=== PATIENT | male | born 1965 | race Caucasian/White ===

== ENCOUNTER → 2018-05-13 10:45 | Outpatient (CLI) | payer OTHER, SELFPAY ==
[2018-05-13 11:35] LABS: Add Manual Diff / Slide Review NO; Basophils Absolute Auto 0 /uL (0-100); Basophils Percent Auto 0.3 % (0-2); Eosinophils Absolute Auto 200 /uL (0-450); Eosinophils Percent Auto 2.9 % (2-4); Hematocrit 41.6 % (41-53); Hemoglobin 14.4 g/dL (13.5-17.5); Lymphocytes Absolute Auto 1900 /uL (1100-4500); Lymphocytes Percent Auto 35.1 % (25-40); Mean Corpuscular HGB Conc 34.6 % (30-36); Mean Corpuscular Hemoglobin 33.5 PG (26-34); Mean Corpuscular Volume 96.7 fL (80-100); Monocytes Absolute Auto 500 /uL (0-900); Monocytes Percent Auto 9.6 % (3-14); Neutrophils Absolute Auto 2800 /uL (1500-7000); Neutrophils Percent Auto 52.1 % (50-75); Platelet Count 310 X10^3/uL (150-400); Red Cell Distribution Width 13.5 % (11.6-14.8); White Blood Cell Count 5.4 X10^3/uL (4.5-11.0)
[2018-05-13 11:51] LABS: Alanine Aminotransferase 33 IU/L (21-72); Albumin 4.3 g/dL (3.5-5.0); Albumin Globulin Ratio 1.7 (1.0-2.8); Alkaline Phosphatase 63 U/L (38-126); Aspartate Aminotransferase 26 IU/L (17-59); BUN Creatinine Ratio 13.3 (6-22); Bilirubin Total 0.3 mg/dL (0.2-1.3); Blood Urea Nitrogen 12 mg/dL (9-20); Carbon Dioxide 25 mmol/L (22-32); Chloride 103 mmol/L (98-107); Cholesterol 217 mg/dL (140-199); Estimated Glomerular Filt Rate > 60.0 mL/min (>60); Globulin 2.6 g/dL (1.7-4.1); Glucose 85 mg/dL (70-100); HDL Cholesterol 53 mg/dL (40-60); HEMOLYSIS < 15 (0-50); LDL Cholesterol Calculated 145 mg/dL (<100); Potassium 4.7 mmol/L (3.4-5.1); Sodium 136 mmol/L (137-145); Total Protein 6.9 g/dL (6.3-8.2); Triglycerides 93 mg/dL (35-150)
[2018-05-14 13:22] LABS: Carbamazepine Tegretol Level 11.9 mg/L (4.0-12.0)
== END ==
PROVIDERS: PCP Family Medicine; Visit Provider Family Medicine
DX: Z13.220 Encounter for screening for lipoid disorders (principal); G40.909 Epilepsy, unspecified, not intractable, without status epilepticus
CPT/HCPCS: 36415; 80053; 80061; 80156; 85025

== ENCOUNTER → 2018-11-12 13:05 | Outpatient (CLI) | payer OTHER, SELFPAY ==
[2018-11-12 14:09] LABS: Add Manual Diff / Slide Review NO; Basophils Absolute Auto 0 /uL (0-100); Basophils Percent Auto 0.3 % (0-2); Eosinophils Absolute Auto 100 /uL (0-450); Eosinophils Percent Auto 2.9 % (2-4); Hematocrit 42.9 % (41-53); Hemoglobin 14.6 g/dL (13.5-17.5); Lymphocytes Absolute Auto 1800 /uL (1100-4500); Mean Corpuscular Hemoglobin 33.1 PG (26-34); Mean Corpuscular Volume 97.4 fL (80-100); Monocytes Absolute Auto 500 /uL (0-900); Monocytes Percent Auto 10.7 % (3-14); Neutrophils Absolute Auto 2400 /uL (1500-7000); Neutrophils Percent Auto 49.1 % (50-75); Platelet Count 318 X10^3/uL (150-400); Red Cell Distribution Width 13.6 % (11.6-14.8); White Blood Cell Count 4.9 X10^3/uL (4.5-11.0)
[2018-11-12 14:19] LABS: Alanine Aminotransferase 22 IU/L (21-72); Albumin 4.7 g/dL (3.5-5.0); Albumin Globulin Ratio 1.6 (1.0-2.8); Alkaline Phosphatase 66 U/L (38-126); Aspartate Aminotransferase 24 IU/L (17-59); BUN Creatinine Ratio 12.5 (6-22); Bilirubin Total 0.4 mg/dL (0.2-1.3); Blood Urea Nitrogen 10 mg/dL (9-20); Calcium 9.8 mg/dL (8.4-10.2); Carbon Dioxide 29 mmol/L (22-32); Chloride 98 mmol/L (98-107); Estimated Glomerular Filt Rate > 60.0 mL/min (>60); Globulin 2.9 g/dL (1.7-4.1); Glucose 87 mg/dL (70-100); HEMOLYSIS < 15 (0-50); Potassium 5.2 mmol/L (3.4-5.1); Sodium 136 mmol/L (137-145); Total Protein 7.6 g/dL (6.3-8.2)
[2018-11-12 14:46] LABS: Prostate Specific Antigen Scrn 0.693 ng/mL (0.1-4.0)
== END ==
PROVIDERS: PCP Family Medicine; Visit Provider Family Medicine
DX: Z12.5 Encounter for screening for malignant neoplasm of prostate (principal); G40.909 Epilepsy, unspecified, not intractable, without status epilepticus
CPT/HCPCS: 36415; 80053; 85025; G0103

== ENCOUNTER → 2018-11-26 12:04 | Outpatient (CLI) | payer OTHER, SELFPAY | PROVIDERS: PCP Family Medicine; Visit Provider Family Medicine | DX: M81.0 Age-related osteoporosis without current pathological fracture (principal); G40.909 Epilepsy, unspecified, not intractable, without status epilepticus; M89.9 Disorder of bone, unspecified | CPT/HCPCS: 77080 ==

== ENCOUNTER 2020-03-05 11:58 | Emergency (ER) | payer OTHER, SELFPAY ==
[2020-03-05 12:10] VITALS: BP 134/85; PULSE 60; RESP 18; TEMP 36.8; O2SAT 99
--- NOTE | 2020-03-05 12:22 | DI.RAD.S_ITS ---
PROCEDURE: XR CHEST 2V INDICATIONS: cough TECHNIQUE: 2 views of the chest were acquired. COMPARISON: [facility], CR, XR CHEST 2V, 08/21/2017, 12:00. FINDINGS: Surgical changes and devices: None. Lungs and pleura: Lungs are clear. No pleural effusions or pneumothorax. Mediastinum: Mediastinal contours are normal. Heart size is normal. Bones and chest wall: No suspicious bony abnormalities. Soft tissues appear unremarkable. IMPRESSION: No acute process. Dictated by: Ankur Gold M.D. on 03/05/2020 at 11:39 Approved by: Ankur Gold M.D. on 03/05/2020 at 11:40
--- NOTE | 2020-03-05 13:31 | ED_ITS ---
HPI - URI/Sore Throat General Chief Complaint: Upper Respiratory Symptoms Stated Complaint: Hx Bronchitis, Can't Take Breath W/O Pain Time Seen by Provider: 03/05/20 13:23 Source: patient Mode of arrival: Ambulatory Limitations: no limitations History of Present Illness HPI Narrative: Patient is a 54-year-old male with history of coronary artery disease, COPD, peripheral vascular disease presenting today with by back pain ongoing for last 2-3 days. He says it hurts every time he moves or breathes. 3 days ago he said he was moving cinder blocks up to the roof and throwing them up there the following day he noticed that he was having pain. He denies any fever chills or shortness of breath. He has no change in cough or sputum production. He has not yet taken anything for pain. He usually just takes Tylenol which works. He denies any radiation of the pain. Related Data Home Medications Medication Instructions Recorded Confirmed atorvastatin 80 mg tablet 80 mg PO DAILY 01/13/19 01/13/19 carvedilol 3.125 mg tablet 3.125 mg PO BID 01/13/19 01/13/19 clopidogrel 75 mg tablet 75 mg PO DAILY 01/13/19 01/13/19 lisinopril 5 mg tablet 5 mg PO DAILY 01/13/19 01/13/19 Previous Rx's Medication Instructions Recorded albuterol sulfate [Ventolin HFA] 2 puff INH Q4HP PRN #1 ea 08/06/16 cholecalciferol (vitamin D3) 50 2,000 unit PO DAILY #90 cap 12/02/18 mcg (2,000 unit) capsule lorazepam 0.5 mg tablet 0.5 mg PO TID PRN #20 tab 01/13/19 carbamazepine 200 mg See Rx Instructions PO SEE 04/12/19 capsule,extended release [id number] INSTRUCTIONS #900 cap alendronate 70 mg tablet 70 mg PO QWEEK #12 tab 12/28/19 Allergies Allergy/AdvReac Type Severity Reaction Status Date / Time acetaminophen AdvReac Mild PELVIC PAIN Verified 01/13/19 10:09 codeine AdvReac Mild PELVIC PAIN Verified 01/13/19 10:09 Review of Systems Review of Systems Narrative: GENERAL: Denies chills, fatigue, malaise, fever, sweats, travel HEENT: Denies sinus pain, ear pain, sore throat, difficulty swallowing, neck pain RESPIRATORY: See HPI Denies dyspnea, cough, wheezing, hemoptysis, sputum. CARDIOVASCULAR: Denies chest pain, palpitations, orthopnea, edema GASTROINTESTINAL: Denies nausea, vomiting, abdominal pain, diarrhea, constipation, melena. : Denies dysuria, frequency, incontinence, hematuria, urinary retention, flank pain. MUSCULOSKELETAL: Back pain see HPI Denies weakness, joint pain, or bony pain SKIN: No rash, no erythema, no pruritus NEUROLOGIC: Denies weakness, dizziness, headache, numbness, change in speech, confusion PSYCHIATRIC: No concerning psychosocial issues. 12 point review of systems is negative except for those stated above and HPI Patient History Medical History Acne (Resolved ~03/2015) Anxiety (Chronic) Asthma (Chronic) Chronic low back pain (Chronic) COPD (chronic obstructive pulmonary disease) (Chronic ~2014) Coronary artery disease (Acute) Depression (Chronic) DJD (degenerative joint disease), lumbar (Chronic) History of PTCA 2 (Acute) Hx of joint injury (Resolved 03/2012) Migraines (Chronic ~2009) PAD (peripheral artery disease) (Acute) Pneumonia (Resolved) Seizure (Chronic ~1987) Seizure disorder (Chronic) Surgical History History of back surgery (Resolved) S/P lumbar laminectomy (Resolved) Family History Father No problems noted. Mother No problems noted. Social History Smoking Status: Current every day smoker Smoking Status: Current every day smoker Substance Use Type: marijuana Exam Initial Vital Signs Initial Vital Signs: Vital Signs Temperature 98.2 F 03/05/20 12:10 Pulse Rate 60 03/05/20 12:10 Respiratory Rate 18 03/05/20 12:10 Blood Pressure 134/85 03/05/20 12:10 Pulse Oximetry 99 03/05/20 12:10 GENERAL: Well-appearing, well-nourished and in no acute distress. Watching see [employer] football game HEENT: Head atraumatic,EOMI, pupils reactive, face symmetric, moist mucous membranes CARDIOVASCULAR: Regular rate and rhythm without murmurs, rubs or gallops. RESPIRATORY: Breath sounds equal bilaterally, no wheezes rales or rhonchi. Headaches without any difficulty and is quite a Chatter BACK: No vertebral tenderness no step-offs pain is not quite reproducible no sign of trauma EXTREMITIES: Normal range of motion, no clubbing or edema. Neurovascularly intact NEUROLOGICAL: Alert and oriented x4.Normal gait and speech. Cranial nerves II through XII grossly intact. SKIN: Warm, dry, no laceration, no petechiae, no rashes or lesions. Course Orders Ordered: ED Orders 03/05/20 12:22 XR chest 2V Stat Vital Signs Vital signs: Vital Signs - 8 hr 03/05/20 12:10 03/05/20 13:56 Temperature 98.2 F Pulse Rate 60 57 L Respiratory Rate 18 18 Blood Pressure 134/85 127/74 Pulse Oximetry 99 100 MDM - URI/Sore Throat Imaging Data Chest x-ray: Radiologist's Impression: PROCEDURE: XR CHEST 2V INDICATIONS: cough TECHNIQUE: 2 views of the chest were acquired. COMPARISON: [facility], , XR CHEST 2V, 08/21/2017, 12:00. FINDINGS: Surgical changes and devices: None. Lungs and pleura: Lungs are clear. No pleural effusions or pneumothorax. Mediastinum: Mediastinal contours are normal. Heart size is normal. Bones and chest wall: No suspicious bony abnormalities. Soft tissues appear unremarkable. IMPRESSION: No acute process. Dictated by: Ankur Gold M.D. on 03/05/2020 at 11:39 MDM Narrative Medical decision making narrative: Patient's pain is worse with movement cough and breathing. It is nonradiating he has no chest pain. It happened after strenuous manual labor. This is clinically correlating with musculoskeletal problem. He appears well he is able to stand and move easily about the room. He does not appear in any sort of distress and does not need anything for pain. Discharge Plan Departure Patient Disposition: Home Clinical Impression: Musculoskeletal chest pain Discharge Date/Time: 03/05/20 14:10 Instructions: DI for Atypical Chest Pain, DI for Muscle Spasm Activity Restrictions/Additional Instructions: Thank you for trusting us with your care today. As discussed, your exam is consistent with musculoskeletal pain related to throwing bricks. Please use [id number] medications as needed and able please rest your back over the next few days. Please follow-up with primary care provider in the next 48-72 hours. Please come back to emergency department for any acute concerns such as concerns of heart attack stroke etcetera Prescriptions: No Action atorvastatin 80 mg tablet 80 mg PO DAILY RF: 0 lisinopril 5 mg tablet 5 mg PO DAILY RF: 0 carvedilol 3.125 mg tablet 3.125 mg PO BID RF: 0 clopidogrel 75 mg tablet 75 mg PO DAILY RF: 0 lorazepam 0.5 mg tablet 0.5 mg PO TID PRN (Reason: anxiety) Qty: 20 RF: 0 albuterol sulfate [Ventolin HFA] 90 MCG/PUFF HFA aerosol inhaler 2 puff INH Q4HP PRNQty: 1 RF: 11 cholecalciferol (vitamin D3) 2,000 unit capsule 2,000 unit PO DAILY Qty: 90 RF: 3 carbamazepine [Carbatrol] 200 mg capsule, ER multiphase 12 hr See Rx Instructions PO SEE INSTRUCTIONS Qty: 900 RF: 3 alendronate 70 mg tablet 70 mg PO QWEEK Qty: 12 RF: 0
[2020-03-05 13:56] VITALS: BP 127/74; PULSE 57; RESP 18; O2SAT 100
== END 2020-03-05 14:10 | disposition home or self-care (01) ==
PROVIDERS: Emergency Provider Emergency Medicine
DX: R07.89 Other chest pain (principal); R05 Cough; R06.02 Shortness of breath
CPT/HCPCS: 71046; 99283

== ENCOUNTER 2020-08-05 09:58 | Emergency (ER) | payer OTHER, SELFPAY ==
[2020-08-05 10:07] VITALS: BP 143/84; PULSE 61; RESP 16; TEMP 36.9; O2SAT 98
--- NOTE | 2020-08-05 10:31 | DI.RAD.S_ITS ---
PROCEDURE: XR RIBS RT MIN 3V W CXR 1V INDICATIONS: fall with R rib pain TECHNIQUE: 3 views of the right ribs were acquired, along with a single view chest. COMPARISON: [facility], CR, XR CHEST 2V, 08/21/2017, 12:00. [facility], CR, XR CHEST 1 VIEW, 01/09/2019, 20:06. [facility], XA, SI LEFT HEART CATH, 01/09/2019, 21:30. [facility], CR, XR CHEST 2V, 03/05/2020, 12:24. FINDINGS: Surgical changes and devices: None. Bones and chest wall: Mildly displaced fractures of the lateral aspects of the right 8th and 10th ribs along with questionable fracture of the lateral aspect of the 6th rib.. No suspicious bony lesions. Overlying soft tissues appear unremarkable. Lungs and pleura: No pleural effusions or pneumothorax. Lungs appear clear. Likely granuloma within the right upper to mid lung is relatively unchanged since at least 2018. Mediastinum: Mediastinal contours appear normal. Heart size is normal. IMPRESSION: Mildly displaced lateral 8th and 10th right rib fractures with additional questionable fracture of the 6th rib. No pneumothorax. Dictated by: Luis Alberto Pimentel D.O. on 08/05/2020 at 9:52 Approved by: Luis Alberto Pimentel D.O. on 08/05/2020 at 10:00
--- NOTE | 2020-08-05 11:51 | ED.FALL ---
HPI - Fall General Chief Complaint: Fall Stated Complaint: broke ribs Time Seen by Provider: 08/05/20 11:42 Source: patient and family Mode of arrival: Ambulatory Limitations: no limitations History of Present Illness HPI Narrative: This is a 55-year-old male comes to the emergency department with complaint of right sided chest pain. He states a week ago he tripped over multiple branches while helping and his mother's yd and fell on his right side. He believes that he did have some rib fractures. Patient has continued to have pain for the past week. He developed some nausea and vomiting about 2 days ago after eating some a eggs and watermelon. Patient states the nausea and vomiting stopped after 1 day and he has not had any additional but he has had some continued nausea. Has decreased his oral intake because he has been anxious about his nausea. He has also continued to have right-sided chest pain with movement and palpation. Patient denies any syncope, no neck, back or abdominal pain. He states he has been constipated but did have a bowel movement after [place]. Patient has not had any black or bloody stools. He did not have any black or blood in his emesis. He has not had any urinary changes. He does have a history of cardiac stents as well as stents in his lower extremities he does take aspirin as well as Plavix. He has a history of seizures and is on carbamazepine as well as his other home medications. He states he has been able to take his medications regularly and he has been taking Tylenol every 6 hours for pain which improves the pain for about 3 hours and then wears off. Related Data Home Medications Medication Instructions Recorded Confirmed atorvastatin 80 mg tablet 80 mg PO DAILY 01/13/19 01/13/19 carvedilol 3.125 mg tablet 3.125 mg PO BID 01/13/19 01/13/19 clopidogrel 75 mg tablet 75 mg PO DAILY 01/13/19 01/13/19 lisinopril 5 mg tablet 5 mg PO DAILY 01/13/19 01/13/19 Previous Rx's Medication Instructions Recorded albuterol sulfate [Ventolin HFA] 2 puff INH Q4HP PRN #1 ea 08/06/16 cholecalciferol (vitamin D3) 50 2,000 unit PO DAILY #90 cap 12/02/18 mcg (2,000 unit) capsule lorazepam 0.5 mg tablet 0.5 mg PO TID PRN #20 tab 01/13/19 carbamazepine 200 mg See Rx Instructions PO SEE 04/12/19 capsule,extended release [id number] INSTRUCTIONS #900 cap alendronate 70 mg tablet 70 mg PO QWEEK #12 tab 12/28/19 hydrocodone-acetaminophen 1 tab PO Q6H PRN #14 tab 08/05/20 ondansetron 4 mg PO Q6H PRN #20 tab 08/05/20 Allergies Allergy/AdvReac Type Severity Reaction Status Date / Time acetaminophen AdvReac Mild PELVIC PAIN Verified 01/13/19 10:09 codeine AdvReac Mild PELVIC PAIN Verified 01/13/19 10:09 Review of Systems Review of Systems ROS Unobtainable: All systems reviewed & are unremarkable except as noted in HPI and below Patient History Medical History Acne (~03/2015) Anxiety Asthma Chronic low back pain COPD (chronic obstructive pulmonary disease) (~2014) Coronary artery disease Depression DJD (degenerative joint disease), lumbar History of PTCA 2 Hx of joint injury (03/2012) Migraines (~2009) PAD (peripheral artery disease) Pneumonia Seizure (~1987) Seizure disorder Surgical History History of back surgery S/P lumbar laminectomy Family History Father No problems noted. Mother No problems noted. Social History Smoking Status: Current every day smoker Smoking Status: Current every day smoker Substance Use Type: marijuana Exam Narrative Exam Narrative: GEN: Thin male in Patient appears in mild to moderate distress. Patient stands during the evaluation and sits back on the bed without issue. HEAD: No evidence of trauma, no raccoon/Dodson sign. NECK: Nontender, painless range of motion, trachea midline Negative Nexus criteria, there is no line tenderness, distracting injury, altered mental status, neuro deficit, recent EtOH. EYES: PERRLA, EOMI ENT: External inspection normal, trachea is midline, no dental or oral injury, airway is normal and with normal occlusion, No bony tenderness RESP: Chest is has right-sided tenderness over the lateral ribs at the 7-10 region, has symmetric movement, no ecchymosis, breath sounds are normal no crackles, wheezes or rales, no flail chest. CVS: Heart sounds are normal, no murmur noted, No JVD. ABG/GI: Nontender, soft, normal bowel sounds, no distention, no organomegaly, pelvic rock is negative NEURO: Oriented AOx3, neuro is grossly intact, sensation and motor is normal all 4 extremities moving, cranial nerves II through XII are intact, GCS is 15 PSYCH: Normal mood and affect SKIN: Intact, warm and dry, no crepitus and without decubitus, no ecchymosis on the anterior chest or abdomen or flank noted. BACK: No CVA tenderness, no vertebral tenderness, no step-off's, no crepitus EXT: Atraumatic, hips are nontender, no pedal edema, normal color and temperature, normal range of motion of extremities with normal tendon exam, 2+ pulses in all four extremities Initial Vital Signs Initial Vital Signs: Vital Signs Temperature 98.4 F 08/05/20 10:07 Pulse Rate 61 08/05/20 10:07 Respiratory Rate 16 08/05/20 10:07 Blood Pressure 143/84 H 08/05/20 10:07 Pulse Oximetry 98 08/05/20 10:07 Course Orders Ordered: ED Orders 08/05/20 10:31 XR ribs RT min 3V w CXR1V Stat Vital Signs Vital signs: Vital Signs - 8 hr 08/05/20 12:20 Pulse Rate 65 Respiratory Rate 20 Blood Pressure 128/82 Pulse Oximetry 99 MDM - Fall Imaging Data Chest x-ray: Radiologist's Impression: [address] [id number] ReportSigned Patient: Jeff Bass [facility]#: [id number]: 1965Acct:[id number]/Sex: 55 / MDate of Service: 08/05/20Loc: EDAccession Number: [id number] Procedure: XR ribs RT min 3V w CXR1V Ordering Provider: Clau Morataya D.O. PROCEDURE: XR RIBS RT MIN 3V W CXR 1V INDICATIONS: fall with R rib pain TECHNIQUE: 3 views of the right ribs were acquired, along with a single view chest. COMPARISON: [facility], CR, XR CHEST 2V, 08/21/2017, 12:00. [facility], CR, XR CHEST 1 VIEW, 01/09/2019, 20:06. [facility], XA, SI LEFT HEART CATH, 01/09/2019, 21:30. [facility], CR, XR CHEST 2V, 03/05/2020, 12:24. FINDINGS: Surgical changes and devices: None. Bones and chest wall: Mildly displaced fractures of the lateral aspects of the right 8th and 10th ribs along with questionable fracture of the lateral aspect of the 6th rib.. No suspicious bony lesions. Overlying soft tissues appear unremarkable. Lungs and pleura: No pleural effusions or pneumothorax. Lungs appear clear. Likely granuloma within the right upper to mid lung is relatively unchanged since at least 2017. Mediastinum: Mediastinal contours appear normal. Heart size is normal. IMPRESSION: Mildly displaced lateral 8th and 10th right rib fractures with additional questionable fracture of the 6th rib. No pneumothorax. Dictated by: Luis Alberto Pimentel D.O. on 08/05/2020 at 9:52 Approved by: Luis Alberto Pimentel D.O. on 08/05/2020 at 10:00 MDM Narrative Medical decision making narrative: This is a 55-year-old male on aspirin and Plavix with a mechanical fall 1 week ago with right-sided chest pain. Patient has x-ray positive for rib fractures with a history appropriate and physical exam. Patient has had some recent nausea. He had vomiting 2 days ago but has not had any additionally. Vital signs are stable here. He is anticoagulant and we discussed doing an abdominal ultrasound to evaluate for any intra-abdominal fluid or other injury. Patient defers at this time. My suspicion for a emergent intra-abdominal process 1 week from his initial injury is low with stable vitals, no ecchymosis or other skin changes. Patient was given incentive spirometer. Patient was given a prescription for Zofran along with his narcotic pain medication as he has had nausea in the past with narcotics. He does have a history of seizure disorder so [place] was selected as this would not increase his seizure risk. All questions were answered. Discharge Plan Departure Patient Disposition: Home Clinical Impression: Closed rib fracture Qualifiers: Encounter type: initial encounter Rib fracture type: multiple ribs Laterality: right Qualified Code(s): S22.41XA - Multiple fractures of ribs, right side, initial encounter for closed fracture Instructions: DI for Rib Fracture Activity Restrictions/Additional Instructions: Follow up in the next 5-7 days for recheck if you are not having improvement. Take Zofran 1 tablet every 6 hours as needed for nausea. Take this medication 20 minutes prior to narcotics to prevent nausea or vomiting. You may take [place] 1-2 tablets every 6 hours as needed for pain. This medication can make you sleepy do not drive, perform hazardous activities or make any major decisions while taking it. [place] has Tylenol included. Do not take more than 3000 mg of Tylenol in 24 hours. Prescription sent to [facility]. This medication will make you constipated take a stool softener once to twice daily until stools are soft and regular. Make sure you are drinking plenty of fluids to stay hydrated and prevent constipation. Return for fevers, new chest pain, shortness of breath, lightheadedness or passing out, persistent vomiting, black or bloody stools, new abdominal, back or neck pain. No numbness tingling or weakness or other new or concerning symptoms. Prescriptions: New ondansetron 4 mg tablet,disintegrating 4 mg PO Q6H PRN (Reason: nausea and vomiting) Qty: 20 RF: 0 hydrocodone-acetaminophen 5-325 mg tablet 1 tab PO Q6H PRN (Reason: pain) Qty: 14 RF: 0 No Action atorvastatin 80 mg tablet 80 mg PO DAILY RF: 0 lisinopril 5 mg tablet 5 mg PO DAILY RF: 0 carvedilol 3.125 mg tablet 3.125 mg PO BID RF: 0 clopidogrel 75 mg tablet 75 mg PO DAILY RF: 0 lorazepam 0.5 mg tablet 0.5 mg PO TID PRN (Reason: anxiety) Qty: 20 RF: 0 albuterol sulfate [Ventolin HFA] 90 MCG/PUFF HFA aerosol inhaler 2 puff INH Q4HP PRNQty: 1 RF: 11 cholecalciferol (vitamin D3) 2,000 unit capsule 2,000 unit PO DAILY Qty: 90 RF: 3 carbamazepine [Carbatrol] 200 mg capsule, ER multiphase 12 hr See Rx Instructions PO SEE INSTRUCTIONS Qty: 900 RF: 3 alendronate 70 mg tablet 70 mg PO QWEEK Qty: 12 RF: 0
[2020-08-05 12:20] VITALS: BP 128/82; PULSE 65; RESP 20; O2SAT 99
== END 2020-08-05 12:35 | disposition home or self-care (01) ==
PROVIDERS: Emergency Provider Emergency Medicine
DX: S22.41XA Multiple fractures of ribs, right side, initial encounter for closed fracture (principal); W19.XXXA Unspecified fall, initial encounter
CPT/HCPCS: 71101; 99283

== ENCOUNTER 2020-09-10 14:26 | Emergency (ER) | payer OTHER, SELFPAY ==
[2020-09-10 15:18] VITALS: BP 126/71; PULSE 66; RESP 16; TEMP 37; O2SAT 98; BMI 20.3
--- NOTE | 2020-09-10 16:16 | ED.GENADULT ---
HPI - General Adult General Chief complaint: Trauma Stated complaint: fell burnt hand/ hit head Time Seen by Provider: 09/10/20 15:43 Source: patient Mode of arrival: Ambulatory Limitations: no limitations History of Present Illness HPI narrative: 55-year-old male who is here for evaluation of injuries that he sustained last evening. He states that he was camping last evening. Was drinking. He tripped and fell and hit his face on a table. He then burned his left hand. He came in this afternoon after he [facility]. He is on aspirin and Plavix. There was no loss of consciousness. He has no neck pain. Does not know when his last tetanus shot was. Related Data Home Medications Medication Instructions Recorded Confirmed atorvastatin 80 mg tablet 80 mg PO DAILY 01/13/19 01/13/19 carvedilol 3.125 mg tablet 3.125 mg PO BID 01/13/19 01/13/19 clopidogrel 75 mg tablet 75 mg PO DAILY 01/13/19 01/13/19 lisinopril 5 mg tablet 5 mg PO DAILY 01/13/19 01/13/19 Previous Rx's Medication Instructions Recorded albuterol sulfate [Ventolin HFA] 2 puff INH Q4HP PRN #1 ea 08/06/16 cholecalciferol (vitamin D3) 50 2,000 unit PO DAILY #90 cap 12/02/18 mcg (2,000 unit) capsule lorazepam 0.5 mg tablet 0.5 mg PO TID PRN #20 tab 01/13/19 carbamazepine 200 mg See Rx Instructions PO SEE 04/12/19 capsule,extended release [id number] INSTRUCTIONS #900 cap alendronate 70 mg tablet 70 mg PO QWEEK #12 tab 12/28/19 hydrocodone-acetaminophen 1 tab PO Q6H PRN #14 tab 08/05/20 ondansetron 4 mg PO Q6H PRN #20 tab 08/05/20 Allergies Allergy/AdvReac Type Severity Reaction Status Date / Time acetaminophen AdvReac Mild PELVIC PAIN Verified 01/13/19 10:09 codeine AdvReac Mild PELVIC PAIN Verified 01/13/19 10:09 Review of Systems Constitutional Constitutional: Denies fever(s) and Reports headache(s) Eyes Comments: Bruising around left eye ENT Ears, Nose, Mouth, and Throat: Reports headache(s) Comments: No dental pain Cardiovascular Cardiovascular: Denies chest pain and Denies dyspnea Respiratory Respiratory: Denies dyspnea Gastrointestinal Gastrointestinal: Denies abdominal pain Musculoskeletal Comments: Generalized muscle soreness Integumentary/Breasts Comments: Bruising around left eye and left ear and sánchez to the right hand Neurologic Neurologic: Reports system reviewed and no additional complaints, except as documented and Reports headache(s) Psychiatric Psychiatric: Reports system reviewed and no additional complaints, except as documented Endocrine Endocrine: Reports system reviewed and no additional complaints, except as documented Hematologic/Lymphatic Comments: Aspirin and Plavix Allergic/Immunologic Allergic/Immunologic: Reports system reviewed and no additional complaints, except as documented Patient History Medical History (Updated 09/10/20 @ 17:41 by Maurilio Maria DO) Acne (~03/2015) Anxiety Asthma Chronic low back pain COPD (chronic obstructive pulmonary disease) (~2014) Coronary artery disease Depression DJD (degenerative joint disease), lumbar History of PTCA 2 Hx of joint injury (03/2012) Migraines (~2009) PAD (peripheral artery disease) Pneumonia Seizure (~1987) Seizure disorder Surgical History History of back surgery S/P lumbar laminectomy Family History Father No problems noted. Mother No problems noted. Social History Smoking Status: Current every day smoker Smoking Status: Current every day smoker alcohol intake frequency: 0-2 drinks per day Substance Use Type: marijuana Exam Initial Vital Signs Initial Vital Signs: Vital Signs Temperature 98.6 F 09/10/20 15:18 Pulse Rate 66 09/10/20 15:18 Respiratory Rate 16 09/10/20 15:18 Blood Pressure 126/71 09/10/20 15:18 Pulse Oximetry 98 09/10/20 15:18 Const General: cooperative, comfortable, well developed and well groomed Limitations: mental status not altered HENMT Head: normal to inspection and normocephalic Ears: TM's normal bilaterally, EAC's normal and other (Bruising behind left ear and left auricle) Nose: external nose normal Face and sinus: normal facial exam Mouth: oral mucosae normal Teeth and gingiva: dentition normal Throat: posterior oropharynx normal Eyes Pupils: PERRL EOM: EOM intact bilaterally Other: Bruising around left eye Neck Neck: normal visual inspection Chest Chest: normal inspection of the chest and No tenderness Resp Effort & Inspection: normal respiratory effort Auscultation: clear to auscultation bilaterally Cardio Rate: regular rate Rhythm: regular rhythm GI Inspection: non-distended Palpation: soft Back/Spine/Pelvis Cervical Spine: No cervical spinal tenderness Skin Other: Bruising behind left ear and also around left eye. Also has blistering to his right hand. It is isolated to the palmar aspect. Is less than 1% total body surface area. Has a linear burn in between the MCP and PIP joint of the little finger. Has a linear burn across the palm of the hand. Also has a linear burn between the PIP and the IP joints of the index and middle finger. Also has a linear burn between the MCP and IP joint of the thumb. Neuro General: patient alert, patient awake and patient oriented x3 Cognition: normal cognition Speech: speech normal Motor: muscle tone normal throughout Sensory Exam: no sensory deficits noted Extrem Other: Full range of motion of bilateral lower extremities to include hips knees and ankles. Also bilateral upper extremities. Psych Appearance: grossly normal and well kempt Scores GCS Halsey coma scale eye opening: Spontaneous Garret coma scale verbal response: Orientated Halsey coma scale motor response: Obey commands Garret coma scale total score: 15 Nexus Score for C-Spine Focal Neurologic deficit present: No Midline spinal tenderness present: No Altered level of conciousness present: No Intoxication present: No Distracting Injury Present: No Nexus Criteria for C-spine: 0 Course Orders Ordered: ED Orders 09/10/20 16:17 CT head/brain wo con Stat Discontinued Medications Bacitracin (Bacitracin Oint 0.9 Gm Pckt) 5 applic TOP NOW ONE Stop: 09/10/20 17:32 Diphtheria/Tetanus/Acell Pertussis (Tet,Diph,Pertuss(Acell),Vac/Pf 0.5 Ml Syringe) 0.5 ml IM .ONCE ONE Stop: 09/10/20 16:18 Vital Signs Vital signs: Vital Signs - 8 hr 09/10/20 15:18 Temperature 98.6 F Pulse Rate 66 Respiratory Rate 16 Blood Pressure 126/71 Pulse Oximetry 98 Medical Decision Making Imaging Data CT scan - head: Radiologist's Impression: [address] [id number] Scan ReportSigned Patient: Jeff Bass [facility]#: [id number]: 1965Acct:[id number]/Sex: 55 / MDate of Service: 09/10/20Loc: EDAccession Number: [id number] Procedure: CT head/brain wo con Ordering Provider: Maurilio Maria D.O. PROCEDURE: CT HEAD/BRAIN WO CON INDICATIONS: Fall on Plavix TECHNIQUE: Noncontrast 4.5 mm thick angled axial sections acquired from the foramen magnum to the vertex, with coronal and sagittal reformats. For radiation dose reduction, the following was used: automated exposure control, adjustment of mA and/or kV according to patient size. COMPARISON: [facility], CT, CT HEAD WITHOUT CONTRAST, 02/22/2019, 8:30. [facility], CT, HEAD WITHOUT CONTRAST, 10/20/2015, 8:14. FINDINGS: Image quality: Excellent. CSF spaces: Basal cisterns are patent. No extra-axial fluid collections. Ventricles are normal in size and shape. Brain: No midline shift. No intracranial masses or hemorrhage. Amador-white matter interface is normal. Skull and face: Calvarium and visualized facial bones are intact, without suspicious lesions. Sinuses: Visualized sinuses and mastoids are clear. IMPRESSION: No acute intracranial hemorrhage is seen. No acute intracranial process is seen. Dictated by: Brian Camejo M.D. on 09/10/2020 at 15:41 Approved by: Brian Camejo M.D. on 09/10/2020 at 15:[address] [facility] Narrative Medical decision making narrative: Patient's tetanus was updated. His head CT is unremarkable. The contusions around his IM behind his left ear well he will Neuro own. He does have less than 1% total body surface area second-degree sánchez to his right hand. These were scrubbed. Topical antibiotic ointment was placed over the area. He was also given instructions with regard to the burn hand stretches on YouTube provided by [facility]. Patient was given return precautions and follow-up instructions. He expressed understanding and agreement. Discharge Plan Departure Patient Disposition: Home Clinical Impression: Contusion of eye, left, Contusion of left ear, Burn of hand, right, second degree Instructions: DI for Sánchez, DI for Eye Contusion, Debridement of a Wound, Infection, or Burn Activity Restrictions/Additional Instructions: Your contusion around your left eye behind her left ear will heal on their own. The sánchez to your right hand do need care for the next couple days/week. You can wash your hands like normal. I do recommend soap and water. I also recommend topical antibiotic ointment such as Neosporin/bacitracin. You can purchase [id number]. He then cover the areas with a clean dry bandage. I also recommend that you review the video provided by the burn team at [facility]. You can find this video on YouTube. If you search for Sánchez 306: Burn hand Stretches it is a video that his 3 minutes long and does provide recommended stretches to your right hand as it heals. Return to the emergency department for any new or worsening symptoms. Prescriptions: No Action atorvastatin 80 mg tablet 80 mg PO DAILY RF: 0 lisinopril 5 mg tablet 5 mg PO DAILY RF: 0 carvedilol 3.125 mg tablet 3.125 mg PO BID RF: 0 clopidogrel 75 mg tablet 75 mg PO DAILY RF: 0 lorazepam 0.5 mg tablet 0.5 mg PO TID PRN (Reason: anxiety) Qty: 20 RF: 0 albuterol sulfate [Ventolin HFA] 90 MCG/PUFF HFA aerosol inhaler 2 puff INH Q4HP PRNQty: 1 RF: 11 cholecalciferol (vitamin D3) 2,000 unit capsule 2,000 unit PO DAILY Qty: 90 RF: 3 carbamazepine [Carbatrol] 200 mg capsule, ER multiphase 12 hr See Rx Instructions PO SEE INSTRUCTIONS Qty: 900 RF: 3 alendronate 70 mg tablet 70 mg PO QWEEK Qty: 12 RF: 0 ondansetron 4 mg tablet,disintegrating 4 mg PO Q6H PRN (Reason: nausea and vomiting) Qty: 20 RF: 0 hydrocodone-acetaminophen 5-325 mg tablet 1 tab PO Q6H PRN (Reason: pain) Qty: 14 RF: 0
[2020-09-10 18:03] VITALS: BP 119/74; PULSE 91; RESP 16; O2SAT 97
[2020-09-10] MEDS: TET,DIPH,PERTUSS(ACELL),VAC/PF 0.5 ML SYRINGE IM (18:14)
== END 2020-09-10 18:30 | disposition home or self-care (01) ==
PROVIDERS: Emergency Provider Emergency Medicine
DX: S00.12XA Contusion of left eyelid and periocular area, initial encounter (principal); S00.432A Contusion of left ear, initial encounter; T23.201A Burn of second degree of right hand, unspecified site, initial encounter; R51.9 Headache, unspecified; Z79.01 Long term (current) use of anticoagulants; W19.XXXA Unspecified fall, initial encounter; Z23 Encounter for immunization
CPT/HCPCS: 70450; 90471; 99284; 90715

== ENCOUNTER 2021-01-15 11:56 | Emergency (ER) | payer OTHER, SELFPAY ==
[2021-01-15 11:57] VITALS: BP 154/83; PULSE 96; RESP 18; TEMP 36.7; O2SAT 99
--- NOTE | 2021-01-15 12:39 | ED_ITS ---
HPI - General Adult <Holly Newell PA-C - Last Filed: 01/15/21 13:39> General Chief complaint: Dental/Oral Stated complaint: Swollen taste buds- losing weight Time Seen by Provider: 01/15/21 12:02 Source: patient Mode of arrival: Ambulatory Limitations: no limitations History of Present Illness HPI narrative: 55-year-old male with past medical history peripheral artery disease, coronary artery disease, migraines, seizure disorder, anxiety, COPD presents to the ED with 4 days of tongue inflammation. Patient states he 1st noticed some discomfort when he had barbecue potato chips 4 days ago, experienced a stinging sensation. Since then patient states that his tongue remains inflamed, looks red, sometimes white. Denies tongue swelling, trouble breathing, trouble swallowing. Denies fever, chills, chest pain, shortness of breath, nausea, vomiting, abdominal pain. Denies having prior episodes of candidiasis. Patient is a daily smoker, but denies chewing tobacco. Patient states that he has not been able to eat very much over the last 4 days and has lost 4 lb. Patient states that he has not been tested for HIV prior to this. Patient endorses being in a monogamous relationship for at least 2 decades. Related Data Home Medications Medication Instructions Recorded Confirmed atorvastatin 80 mg tablet 80 mg PO DAILY 01/13/19 01/13/19 carvedilol 3.125 mg tablet 3.125 mg PO BID 01/13/19 01/13/19 clopidogrel 75 mg tablet 75 mg PO DAILY 01/13/19 01/13/19 lisinopril 5 mg tablet 5 mg PO DAILY 01/13/19 01/13/19 Previous Rx's Medication Instructions Recorded albuterol sulfate 90 mcg/actuation 2 puff INH Q4HP PRN #1 ea 08/06/16 aerosol inhaler (Ventolin HFA) cholecalciferol (vitamin D3) 50 2,000 unit PO DAILY #90 cap 12/02/18 mcg (2,000 unit) capsule lorazepam 0.5 mg tablet 0.5 mg PO TID PRN #20 tab 01/13/19 carbamazepine 200 mg See Rx Instructions PO SEE 04/12/19 capsule,extended release INSTRUCTIONS #900 cap [id number] (Carbatrol) alendronate 70 mg tablet 70 mg PO QWEEK #12 tab 12/28/19 hydrocodone 5 mg-acetaminophen 325 1 tab PO Q6H PRN #14 tab 08/05/20 mg tablet ondansetron 4 mg disintegrating 4 mg PO Q6H PRN #20 tab 08/05/20 tablet clotrimazole 10 mg sienna 10 mg MUCOUS MEMBRANE 5XD 14 Days 01/15/21 #70 tab clotrimazole 10 mg sienna 10 mg MUCOUS MEMBRANE 5XD 14 Days 01/15/21 #70 tab Allergies Allergy/AdvReac Type Severity Reaction Status Date / Time acetaminophen AdvReac Mild PELVIC PAIN Verified 01/13/19 10:09 codeine AdvReac Mild PELVIC PAIN Verified 01/13/19 10:09 Review of Systems <Holly Newell PA-C - Last Filed: 01/15/21 13:39> Constitutional Constitutional: Denies chills, Denies fatigue, Denies fever(s), Denies frequent falls, Denies lethargy and Denies weakness Eyes Eyes: Denies change in vision, Denies eye discharge, Denies irritation and Denies loss of vision ENT Ears, Nose, Mouth, and Throat: Denies change in voice, Denies dizziness, Denies dry mouth, Denies neck pain, Denies sore throat, Denies throat swelling and Denies tongue swelling Comments: Tongue inflammation Cardiovascular Cardiovascular: Denies chest pain, Denies irregular heart rhythm, Denies lightheadedness, Denies palpitations, Denies dyspnea, Denies dyspnea on exertion and Denies orthopnea Respiratory Respiratory: Denies cough, Denies dyspnea, Denies dyspnea on exertion and Denies wheezing Gastrointestinal Gastrointestinal: Denies abdominal pain, Denies change in bowel habits, Denies diarrhea, Denies nausea and Denies vomiting Musculoskeletal Musculoskeletal: Denies neck pain and Denies numbness Integumentary/Breasts Skin/Breast: Denies pruritus, Denies erythema, Denies rash and Denies wounds Neurologic Neurologic: Denies behavioral changes, Denies confusion, Denies dizziness, Denies frequent falls, Denies loss of vision, Denies numbness and Denies weakness Psychiatric Psychiatric: Denies anxiety, Denies behavioral changes, Denies confusion, Denies depression, Denies homicidal ideation and Denies suicidal ideation Endocrine Endocrine: Denies fatigue, Denies flushing and Denies palpitations Hematologic/Lymphatic Hematologic/Lymphatic: Denies easy bruising Allergic/Immunologic Allergic/Immunologic: Denies urticaria, Denies throat swelling, Denies tongue swelling and Denies wheezing Patient History <Holly Newell PA-C - Last Filed: 01/15/21 13:39> Medical History (Updated 01/15/21 @ 13:34 by Holly Newell PA-C) Acne (~03/2015) Anxiety Asthma Chronic low back pain COPD (chronic obstructive pulmonary disease) (~2014) Coronary artery disease Depression DJD (degenerative joint disease), lumbar History of PTCA 2 Hx of joint injury (03/2012) Migraines (~2009) PAD (peripheral artery disease) Pneumonia Seizure (~1987) Seizure disorder Surgical History History of back surgery S/P lumbar laminectomy Family History Father No problems noted. Mother No problems noted. Social History Smoking Status: Current every day smoker Smoking Status: Current every day smoker alcohol intake frequency: 0-2 drinks per day Substance Use Type: marijuana Exam <Holly Newell PA-C - Last Filed: 01/15/21 13:39> Initial Vital Signs Initial Vital Signs: Vital Signs Temperature 98.1 F 01/15/21 11:57 Pulse Rate 96 H 01/15/21 11:57 Respiratory Rate 18 01/15/21 11:57 Blood Pressure 154/83 H 01/15/21 11:57 Pulse Oximetry 99 01/15/21 11:57 Const General: cooperative HENMT Head: normocephalic and atraumatic Ears: external ears normal and TM's normal bilaterally Nose: external nose normal and No nasal discharge Face and sinus: sinuses nontender, face symmetric, no sinus tenderness and No d ry mucous membranes Mouth: oral mucosae normal, moist mucous membranes and tongue abnormal (Central tongue appears inflamed, with white coating. Oropharynx clear) Teeth and gingiva: dentition normal Throat: tonsils normal and uvula midline Eyes General: appearance normal, both eyes and all related structures Eyelids: eyelids normal Conjunctivae: conjunctivae normal Sclera: sclerae normal Pupils: PERRL EOM: EOM intact bilaterally Neck Neck: normal visual inspection, trachea midline, No lymphadenopathy, No midline deformity and No JVD Lymphatic: No lymphedema Chest Chest: normal inspection of the chest Resp Effort & Inspection: normal respiratory effort, able to speak in complete sentences, no respiratory distress and no use of accessory muscles Auscultation: clear to auscultation bilaterally, no rales, no rhonchi and no wheezes Cardio Rate: regular rate Rhythm: regular rhythm Heart Sounds: no click, no gallops, no murmurs and no rubs Pulses: normal peripheral pulses GI Inspection: non-distended Palpation: soft, no hepatosplenomegaly, No guarding, No pulsatile mass and No tender Auscultation: normal bowel sounds Back/Spine/Pelvis Back: No CVA tenderness Cervical Spine: cervical ROM normal and No pain with cervical ROM Thoracic/Lumbar Spine: thoracic and lumbar spine normal to inspection Skin General: no rashes or lesions noted, No jaundice and No petechiae Neuro General: patient alert, patient oriented x3, gait normal and no focal motor deficits Speech: speech normal Extrem General: full ROM, no clubbing, cyanosis or edema, no pedal edema and no calf te nderness Psych Appearance: well kempt Mental Status: mental status grossly normal Attitude: cooperative Thought Content: normal and suicidality Judgment: judgment good <Gucci Ross DO - Last Filed: 01/16/21 06:56> Initial Vital Signs Initial Vital Signs: Vital Signs Temperature 98.1 F 01/15/21 11:57 Pulse Rate 96 H 01/15/21 11:57 Respiratory Rate 18 01/15/21 11:57 Blood Pressure 154/83 H 01/15/21 11:57 Pulse Oximetry 99 01/15/21 11:57 Course <Holly Newell PA-C - Last Filed: 01/15/21 13:39> Course Course Narrative: Patient perefers to be called regarding the HIV test, opted not to wait in the ED for results. DC home with prescription for clotrimazole, strict ED return precautions, PCP follow-up. Orders Ordered: ED Orders 01/15/21 12:28 Complete Blood Count AUTO DIFF Stat Comprehensive Metabolic Panel Stat HIV 1 & 2 Ab/Ag 4th Gen Combo Stat Vital Signs Vital signs: Vital Signs - 8 hr 01/15/21 11:57 Temperature 98.1 F Pulse Rate 96 H Respiratory Rate 18 Blood Pressure 154/83 H Pulse Oximetry 99 <Gucci Ross DO - Last Filed: 01/16/21 06:56> Orders Ordered: ED Orders 01/15/21 12:28 Complete Blood Count AUTO DIFF Stat Comprehensive Metabolic Panel Stat HIV 1 & 2 Ab/Ag 4th Gen Combo Stat Vital Signs Vital signs: Vital Signs - 8 hr 01/15/21 11:57 Temperature 98.1 F Pulse Rate 96 H Respiratory Rate 18 Blood Pressure 154/83 H Pulse Oximetry 99 Medical Decision Making <Holly Newell PA-C - Last Filed: 01/15/21 13:39> Lab Data Result diagrams: 01/15/21 12:28 01/15/21 12:28 Labs: Lab Results 01/15/21 01/15/21 01/15/21 Range/Units 12:28 12:28 12:28 WBC 4.3 L (4.5-11.0) X10^3/uL RBC 4.36 L (4.5-5.9) X10^6/uL Hgb 14.9 (13.5-17.5) g/dL Hct 43.6 (41-53) % MCV 100.1 H (80-100) fL MCH 34.2 H (26-34) PG MCHC 34.2 (30-36) % RDW 13.0 (11.6-14.8) % Plt Count 326 (150-400) X10^3/uL Neut % (Auto) 55.5 (50-75) % Lymph % (Auto) 30.5 (25-40) % Apache % (Auto) 11.1 (3-14) % Eos % (Auto) 2.3 (2-4) % Baso % (Auto) 0.6 (0-2) % Neut # (Auto) 2400 (6429-1817) /uL Lymph # (Auto) 1300 (4026-8961) /uL Apache # (Auto) 500 (0-900) /uL Eos # (Auto) 100 (0-450) /uL Baso # (Auto) 0 (0-100) /uL Sodium 132 L (137-145) mmol/L Potassium 5.0 (3.4-5.1) mmol/L Chloride 100 (98-107) mmol/L Carbon Dioxide 26 (22-32) mmol/L BUN 20 (9-20) mg/dL Creatinine 0.84 (0.66-1.25) mg/dL Estimated GFR > 60.0 (>60) mL/min BUN/Creatinine Ratio 23.8 H (6-22) Glucose 88 (70-100) mg/dL Calcium 9.4 (8.4-10.2) mg/dL Total Bilirubin 0.3 (0.2-1.3) mg/dL AST 35 (17-59) IU/L ALT 30 (<50) IU/L Alkaline Phosphatase 59 (38-126) U/L Total Protein 7.5 (6.3-8.2) g/dL Albumin 4.6 (3.5-5.0) g/dL Globulin 2.9 (1.7-4.1) g/dL Albumin/Globulin Ratio 1.6 (1.0-2.8) HIV 1&2 Ab/P24 Ag 4thGn Negative (NEGATIVE) MDM Narrative Medical decision making narrative: 55-year-old male with past medical history peripheral artery disease, coronary artery disease, migraines, seizure disorder, anxiety, COPD presents to the ED with 4 days of tongue inflammation. Based on physical exam likely oral candidiasis versus tongue inflammation from spicy foods. Patient would like to be tested for HIV. Will order HIV test, labs. Will discharge home with PCP follow-up, prescription for clotrimazole, ED return precautions. <Gucci Ross DO - Last Filed: 01/16/21 06:56> Lab Data Labs: Lab Results 01/15/21 01/15/21 01/15/21 Range/Units 12:28 12:28 12:28 WBC 4.3 L (4.5-11.0) X10^3/uL RBC 4.36 L (4.5-5.9) X10^6/uL Hgb 14.9 (13.5-17.5) g/dL Hct 43.6 (41-53) % MCV 100.1 H (80-100) fL MCH 34.2 H (26-34) PG MCHC 34.2 (30-36) % RDW 13.0 (11.6-14.8) % Plt Count 326 (150-400) X10^3/uL Neut % (Auto) 55.5 (50-75) % Lymph % (Auto) 30.5 (25-40) % Apache % (Auto) 11.1 (3-14) % Eos % (Auto) 2.3 (2-4) % Baso % (Auto) 0.6 (0-2) % Neut # (Auto) 2400 (2724-5201) /uL Lymph # (Auto) 1300 (4573-7342) /uL Apache # (Auto) 500 (0-900) /uL Eos # (Auto) 100 (0-450) /uL Baso # (Auto) 0 (0-100) /uL Sodium 132 L (137-145) mmol/L Potassium 5.0 (3.4-5.1) mmol/L Chloride 100 (98-107) mmol/L Carbon Dioxide 26 (22-32) mmol/L BUN 20 (9-20) mg/dL Creatinine 0.84 (0.66-1.25) mg/dL Estimated GFR > 60.0 (>60) mL/min BUN/Creatinine Ratio 23.8 H (6-22) Glucose 88 (70-100) mg/dL Calcium 9.4 (8.4-10.2) mg/dL Total Bilirubin 0.3 (0.2-1.3) mg/dL AST 35 (17-59) IU/L ALT 30 (<50) IU/L Alkaline Phosphatase 59 (38-126) U/L Total Protein 7.5 (6.3-8.2) g/dL Albumin 4.6 (3.5-5.0) g/dL Globulin 2.9 (1.7-4.1) g/dL Albumin/Globulin Ratio 1.6 (1.0-2.8) HIV 1&2 Ab/P24 Ag 4thGn Negative (NEGATIVE) Discharge Plan Departure Patient Disposition: Home Clinical Impression: Candidiasis of mouth Instructions: Thrush-Adult Activity Restrictions/Additional Instructions: You are evaluated in the ED today for tongue inflammation. You likely have oral candidiasis AKA thrush. You can take clotrimazole 5 times a day for 14 days. Please refrain from using mouthwash or scrubbing the tongue until the infection is resolved. To the ED if you note any tongue swelling, trouble swallowing, trouble breathing. Please follow-up with your PCP in a week. Prescriptions: New clotrimazole 10 mg sienna 10 mg mucous membrane 5XD 14 Days Qty: 70 RF: 0 clotrimazole 10 mg sienna 10 mg mucous membrane 5XD 14 Days Qty: 70 RF: 0 No Action atorvastatin 80 mg tablet 80 mg PO DAILY RF: 0 lisinopril 5 mg tablet 5 mg PO DAILY RF: 0 carvedilol 3.125 mg tablet 3.125 mg PO BID RF: 0 clopidogrel 75 mg tablet 75 mg PO DAILY RF: 0 lorazepam 0.5 mg tablet 0.5 mg PO TID PRN (Reason: anxiety) Qty: 20 RF: 0 albuterol sulfate [Ventolin HFA] 90 MCG/PUFF HFA aerosol inhaler 2 puff INH Q4HP PRNQty: 1 RF: 11 cholecalciferol (vitamin D3) 2,000 unit capsule 2,000 unit PO DAILY Qty: 90 RF: 3 carbamazepine [Carbatrol] 200 mg capsule, ER multiphase 12 hr See Rx Instructions PO SEE INSTRUCTIONS Qty: 900 RF: 3 alendronate 70 mg tablet 70 mg PO QWEEK Qty: 12 RF: 0 ondansetron 4 mg tablet,disintegrating 4 mg PO Q6H PRN (Reason: nausea and vomiting) Qty: 20 RF: 0 hydrocodone-acetaminophen 5-325 mg tablet 1 tab PO Q6H PRN (Reason: pain) Qty: 14 RF: 0 <Gucci Ross DO - Last Filed: 01/16/21 06:56> [facility]: I was immediately available in the department for consultation. This documentation has been reviewed and I agree with assessment and plan. Supervised by Gucci Ross DO
[2021-01-15 12:42] LABS: Add Manual Diff / Slide Review NO; Basophils Absolute Auto 0 /uL (0-100); Basophils Percent Auto 0.6 % (0-2); Eosinophils Absolute Auto 100 /uL (0-450); Eosinophils Percent Auto 2.3 % (2-4); Hematocrit 43.6 % (41-53); Hemoglobin 14.9 g/dL (13.5-17.5); Lymphocytes Absolute Auto 1300 /uL (1100-4500); Lymphocytes Percent Auto 30.5 % (25-40); Mean Corpuscular HGB Conc 34.2 % (30-36); Mean Corpuscular Hemoglobin 34.2 PG (26-34); Mean Corpuscular Volume 100.1 fL (80-100); Monocytes Absolute Auto 500 /uL (0-900); Monocytes Percent Auto 11.1 % (3-14); Neutrophils Absolute Auto 2400 /uL (1500-7000); Neutrophils Percent Auto 55.5 % (50-75); Platelet Count 326 X10^3/uL (150-400); Red Blood Cell Count 4.36 X10^6/uL (4.5-5.9); White Blood Cell Count 4.3 X10^3/uL (4.5-11.0)
--- NOTE | 2021-01-15 13:02 | PC.NURSE ---
Noted white covering over tongue.
[2021-01-15 13:03] LABS: Alanine Aminotransferase 30 IU/L (<50); Albumin 4.6 g/dL (3.5-5.0); Albumin Globulin Ratio 1.6 (1.0-2.8); Alkaline Phosphatase 59 U/L (38-126); Aspartate Aminotransferase 35 IU/L (17-59); BUN Creatinine Ratio 23.8 (6-22); Bilirubin Total 0.3 mg/dL (0.2-1.3); Blood Urea Nitrogen 20 mg/dL (9-20); Calcium 9.4 mg/dL (8.4-10.2); Carbon Dioxide 26 mmol/L (22-32); Chloride 100 mmol/L (98-107); Estimated Glomerular Filt Rate > 60.0 mL/min (>60); Globulin 2.9 g/dL (1.7-4.1); Glucose 88 mg/dL (70-100); HEMOLYSIS < 15 (0-50); Sodium 132 mmol/L (137-145); Total Protein 7.5 g/dL (6.3-8.2)
[2021-01-15 15:30] LABS: HIV 1 & 2 Ab/Ag 4th Gen Combo NEGATIVE (NEGATIVE)
== END 2021-01-15 13:38 | disposition home or self-care (01) ==
PROVIDERS: Emergency Provider Student in an Organized Health Care Education/Training Program
DX: B37.0 Candidal stomatitis (principal)
CPT/HCPCS: 36415; 80053; 85025; 87389; 99283

== ENCOUNTER 2021-06-07 12:48 | Emergency (ER) | payer OTHER, SELFPAY ==
[2021-06-07 12:55] VITALS: BP 123/82; PULSE 65; RESP 14; TEMP 36.1; O2SAT 100; BMI 20.3
--- NOTE | 2021-06-07 12:57 | DI.RAD.S_ITS ---
PROCEDURE: XR ANKLE LT MIN 3V INDICATIONS: rolled left ankle TECHNIQUE: 3 views of the ankle were acquired. COMPARISON: None. FINDINGS: Bones: No fractures or dislocations. Ankle mortise is normally aligned. No suspicious bony lesions. Soft tissues: No tibiotalar joint effusion. Achilles tendon appears normal. IMPRESSION: No acute fracture. No osseous lesion. If symptoms and/or clinical suspicion for pathology persist, further assessment with repeat, or advanced imaging (e.g., CT, MRI, or bone scan) may be helpful for further assessment. Dictated by: Ankur Gold M.D. on 06/07/2021 at 13:59 Approved by: Ankur Gold M.D. on 06/07/2021 at 14:00
--- NOTE | 2021-06-07 18:34 | ED.LOWEXIN ---
HPI - Extremity Injury (Lower) General Chief Complaint: Extremity Injury, Lower Stated Complaint: Thinks broken left ankle Time Seen by Provider: 06/07/21 18:33 Source: patient Mode of arrival: Ambulatory History of Present Illness HPI Narrative: 56-year-old gentleman with a history of seizure disorder, coronary artery disease on aspirin, prior back surgeries history of osteoporosis was working yesterday climb down a ladder and missed the last step twisting his left foot and ankle. Minor pain yesterday he iced and when he woke up this morning noticed significant increased pain, swelling and some ecchymosis developing over the lateral aspect of his foot. He comes in to see if he has broken it. Related Data Home Medications Medication Instructions Recorded Confirmed atorvastatin 80 mg tablet 80 mg PO DAILY 01/13/19 01/13/19 carvedilol 3.125 mg tablet 3.125 mg PO BID 01/13/19 01/13/19 clopidogrel 75 mg tablet 75 mg PO DAILY 01/13/19 01/13/19 lisinopril 5 mg tablet 5 mg PO DAILY 01/13/19 01/13/19 Previous Rx's Medication Instructions Recorded albuterol sulfate 90 mcg/actuation 2 puff INH Q4HP PRN #1 ea 08/06/16 aerosol inhaler (Ventolin HFA) cholecalciferol (vitamin D3) 50 2,000 unit PO DAILY #90 cap 12/02/18 mcg (2,000 unit) capsule lorazepam 0.5 mg tablet 0.5 mg PO TID PRN #20 tab 01/13/19 carbamazepine 200 mg See Rx Instructions PO SEE 04/12/19 capsule,extended release INSTRUCTIONS #900 cap [id number] (Carbatrol) alendronate 70 mg tablet 70 mg PO QWEEK #12 tab 12/28/19 hydrocodone 5 mg-acetaminophen 325 1 tab PO Q6H PRN #14 tab 08/05/20 mg tablet ondansetron 4 mg disintegrating 4 mg PO Q6H PRN #20 tab 08/05/20 tablet oxycodone-acetaminophen 5 mg-325 1 - 2 tab PO Q6H PRN #10 tab 06/07/21 mg tablet Allergies Allergy/AdvReac Type Severity Reaction Status Date / Time acetaminophen AdvReac Mild PELVIC PAIN Verified 06/07/21 12:55 codeine AdvReac Mild PELVIC PAIN Verified 06/07/21 12:55 Review of Systems Review of Systems Narrative: Pertinent positive and negative findings as per HPI Remainder of review of systems is otherwise unremarkable for Constitutional: Fevers, chills, weakness ENT: No sore throat, neck pain, ear pain CV: Chest pain, palpitations, Respiratory: Cough, wheeze, dyspnea GI: Nausea, vomiting, diarrhea, Patient History Medical History (Updated 06/07/21 @ 18:51 by Conchita Rojo MD) Acne (~03/2015) Anxiety Asthma Chronic low back pain COPD (chronic obstructive pulmonary disease) (~2014) Coronary artery disease Depression DJD (degenerative joint disease), lumbar History of PTCA 2 Hx of joint injury (03/2012) Migraines (~2009) PAD (peripheral artery disease) Pneumonia Seizure (~1987) Seizure disorder Surgical History History of back surgery S/P lumbar laminectomy Family History Father No problems noted. Mother No problems noted. Social History Smoking Status: Current every day smoker Smoking Status: Current every day smoker alcohol intake frequency: holidays/special occasions only Substance Use Type: marijuana Exam Initial Vital Signs Initial Vital Signs: Vital Signs Temperature 97.0 F L 06/07/21 12:55 Pulse Rate 65 06/07/21 12:55 Respiratory Rate 14 06/07/21 12:55 Blood Pressure 123/82 06/07/21 12:55 Pulse Oximetry 100 06/07/21 12:55 General: Alert appropriate in no acute distress Respiratory: Able to speak in full sentences, no obvious respiratory distress Skin: No obvious rashes, warm and dry Neurologic: Grossly intact no obvious asymmetries or abnormalities Psych: appropriate insight and affect, cooperative Extremity: Left ankle with ecchymosis over the lateral malleolus. Minor swelling, ecchymosis settling along the lateral aspect of the foot. There is no bony point tenderness over the foot itself. He does have full range of motion and is neurovascularly intact Procedures Orthopedic Splinting/Casting Right ankle: Side: left Lower Extremity Injury Location: ankle Lower Extremity Immobilizer: Terry wrap Post splinting neuro exam: intact Post splinting vascular exam: intact Placed by: Nursing Course Orders Ordered: ED Orders 06/07/21 12:57 XR ankle LT min 3V Stat Vital Signs Vital signs: Vital Signs - 8 hr 06/07/21 12:55 Temperature 97.0 F L Pulse Rate 65 Respiratory Rate 14 Blood Pressure 123/82 Pulse Oximetry 100 [facility] - Extremity Injury (Lower) Imaging Data ankle xr: Radiologist's Impression: FINDINGS:? ? Bones:? No fractures or dislocations.? Ankle mortise is normally aligned.? No suspicious bony lesions.? ? Soft tissues:? No tibiotalar joint effusion.? Achilles tendon appears normal.? ? ? IMPRESSION:? No acute fracture. No osseous lesion. If symptoms and/or clinical suspicion for pathology persist, further assessment with repeat, or advanced imaging (e.g., CT, MRI, or bone scan) may be helpful for further assessment. ? ? Dictated by: Ankur Gold M.D. on 06/07/2021 at 13:59 ? ? Approved by: Ankur Gold M.D. on 06/07/2021 at 14:00?? [facility] Narrative Medical decision making narrative: 56-year-old gentleman with minor inversion ankle injury to the left ankle after missing the last step on a ladder. X-ray is unremarkable. Terry wrap is placed by nursing staff. Anticipatory guidance reviewed. Reassurance given and recommended that he follow-up if symptoms are not improving after 4-5 days. He is safe for home discharge Discharge Plan Departure Patient Disposition: Home Clinical Impression: Ankle sprain Instructions: DI for Ankle Sprain Activity Restrictions/Additional Instructions: Thank you for coming in today Your x-ray is normal, there are no broken bones. You clearly sprained your ankle. I would expect increasing pain and swelling tomorrow and then gradually improving from there. You will definitely have more bruising over the next couple of days. Keeping the foot elevated, using ice to help with the swelling will be appropriate. Using the Terry wrap to help control the swelling a bit as well as stabilize the ankle will also be useful. You can stop using the Terry wrap when it no longer feels like it is beneficial. For severe pain over the next 2 days you can use 1-2 Percocet. For moderate pain please continue the Tylenol that you are currently using Prescription for Percocet was electronically transmitted to [facility] in [place]. If you find that you are not improving please contact [facility] for further evaluation. There office #[phone]. Prescriptions: New oxycodone-acetaminophen 5-325 mg tablet 1 - 2 tab PO Q6H PRN (Reason: pain) Qty: 10 0RF No Action atorvastatin 80 mg tablet 80 mg PO DAILY 0RF lisinopril 5 mg tablet 5 mg PO DAILY 0RF carvedilol 3.125 mg tablet 3.125 mg PO BID 0RF clopidogrel 75 mg tablet 75 mg PO DAILY 0RF lorazepam 0.5 mg tablet 0.5 mg PO TID PRN (Reason: anxiety) Qty: 20 0RF albuterol sulfate [Ventolin HFA] 90 MCG/PUFF HFA aerosol inhaler 2 puff INH Q4HP PRNQty: 1 11RF cholecalciferol (vitamin D3) 2,000 unit capsule 2,000 unit PO DAILY Qty: 90 3RF carbamazepine [Carbatrol] 200 mg capsule, ER multiphase 12 hr See Rx Instructions PO SEE INSTRUCTIONS Qty: 900 3RF Dose Instruction: PO SEE INSTRUCTIONS; Rx Instructions: Take 4 tablets in the morning, 6 tablets in the evening. alendronate 70 mg tablet 70 mg PO QWEEK Qty: 12 0RF Rx Instructions: 12/20/19. S/W Jeff. Advised appt before the end of this prescription. No additional refills until seen. ondansetron 4 mg tablet,disintegrating 4 mg PO Q6H PRN (Reason: nausea and vomiting) Qty: 20 0RF hydrocodone-acetaminophen 5-325 mg tablet 1 tab PO Q6H PRN (Reason: pain) Qty: 14 0RF
== END 2021-06-07 19:03 | disposition home or self-care (01) ==
PROVIDERS: Emergency Provider Emergency Medicine
DX: S93.402A Sprain of unspecified ligament of left ankle, initial encounter (principal); X50.1XXA Overexertion from prolonged static or awkward postures, initial encounter
CPT/HCPCS: 73610; 99282; 99283

== ENCOUNTER → 2023-05-06 15:31 | Outpatient (CLI) | payer OTHER, SELFPAY ==
--- NOTE | 2023-05-06 | DI.CT.S_ITS ---
PROCEDURE: CT LUMBAR SPINE WO CON INDICATIONS: Low back pain, unspecified TECHNIQUE: Noncontrast 3 mm thick sections acquired from the T12 level to the sacrum. Sagittal and coronal reformats were constructed. For radiation dose reduction, the following was used: automated exposure control. In this patient, 3-D reformatted images were also performed. COMPARISON: [facility], MR, MR LUMBAR SPINE WO CON, 05/06/2023, 16:56. FINDINGS: Image quality: Excellent. Bones: There is normal bony alignment. No acute vertebral body compression fractures. There is a minimal T12 anterior wedge deformity, 10-20%. No suspicious lytic or blastic bony lesions. No pars defects. T12-L1: Normal. L1-L2: Mild loss of disc height is seen. Mild generalized disc bulge is seen. There is a superimposed central disc protrusion. Minimal to mild bilateral neural foraminal narrowing is seen. No significant central canal narrowing is seen. L2-L3: Normal. L3-L4: The disc height is well preserved. Mild generalized disc bulge is seen. There is a superimposed central disc protrusion. There is mild right-sided and moderate left-sided neural foraminal narrowing. Mild to moderate central canal narrowing can be seen. L4-L5: [id number] loss of disc height can be seen on the right-side. Moderate generalized disc bulge is seen. There is a superimposed central disc protrusion. Moderate facet joint hypertrophy is seen. Moderate bilateral neural foraminal narrowing is seen. Moderate central canal narrowing is seen. L5-S1: Postoperative changes are seen at this level, with bilateral pedicle screws and vertical fixation rods. The left-sided L5 screw is somewhat superiorly angulated, as on series 7, image 25. The screws otherwise appear well placed. Vertical fixation rods can be seen. There is a disc spacer seen at this level. Mild generalized disc bulge is seen. Moderate bilateral neural foraminal narrowing is seen. No significant central canal narrowing is seen. Soft tissues: No retroperitoneal masses or hematomas. Visualized aorta is normal in caliber. IMPRESSION: L5-S1 postoperative hardware, as described. Multiple levels of degenerative change can be seen, which are overall worst at the L4-L5 level. Additional findings: Remote 10-20% anterior wedge deformity of T12 Dictated by: Brian Camejo M.D. on 05/06/2023 at 18:32 Approved by: Brian Camejo M.D. on 05/06/2023 at 18:36
--- NOTE | 2023-05-06 | DI.MRI.S_ITS ---
PROCEDURE: MR LUMBAR SPINE WO CON INDICATIONS: Low back pain, unspecified TECHNIQUE: Noncontrast sagittal T1 spin echo and T2 fast echo, sagittal STIR, and T2 fast spin echo through the lumbar spine. In cases with scoliosis, additional coronal T2 fast spin echo may be performed. COMPARISON: None. FINDINGS: Image quality: Excellent. Alignment and Curvature: There is normal bony alignment. Posterior and interbody surgical fusion at L5-S1, without hardware complication. Bone Marrow: Marrow is of normal overall signal. No acute vertebral body compression fractures. Spinal Cord: Conus medullaris terminates at the L1 level. Visualized cord demonstrates normal signal and size. Paraspinous Soft Tissues: No paravertebral masses. T12-L1: Normal appearance. L1-L2: Broad-based disc bulge. Disc desiccation. Epidural lipomatosis and mild ligamentum flavum hypertrophy. L2-L3: Broad-based disc bulge, disc desiccation, epidural lipomatosis and ligamentum flavum hypertrophy. L3-L4: Broad-based disc bulge, disc desiccation, epidural lipomatosis and ligamentum flavum hypertrophy. L4-L5: Asymmetric disc bulge into the right subarticular, foraminal and extraforaminal space. Possible tiny annular fissure (series 2, image 7). Moderate right and mild left neural foraminal narrowing. L5-S1: No significant spinal canal or neural foraminal narrowing. IMPRESSION: Multilevel degenerative disc disease and facet arthrosis. Of note, there is an asymmetric disc bulge on the right side of L4-5, resulting in moderate right neural foraminal narrowing. Posterior and interbody surgical fusion at L5-S1, without hardware complication. Dictated by: Fred Reid M.D. on 05/07/2023 at 9:21 Approved by: Fred Reid M.D. on 05/07/2023 at 9:26
== END ==
LOC: CT 15:32
PROVIDERS: PCP Surgery Surgical Oncology; Referring Provider Physician Assistant; Visit Provider Physician Assistant
DX: M47.816 Spondylosis without myelopathy or radiculopathy, lumbar region (principal); M51.36 Other intervertebral disc degeneration, lumbar region; M54.50 Low back pain, unspecified; M62.89 Other specified disorders of muscle; M43.8X4 Other specified deforming dorsopathies, thoracic region; Z98.1 Arthrodesis status; Z87.891 Personal history of nicotine dependence; M48.061 Spinal stenosis, lumbar region without neurogenic claudication
CPT/HCPCS: 72131; 72148

== ENCOUNTER 2023-08-07 18:01 | Emergency (ER) | payer OTHER, SELFPAY ==
[2023-08-07] VITALS (8 sets, daily range): BP systolic 120–154; BP diastolic 71–92; PULSE 53–64; RESP 18; TEMP 37.1; O2SAT 97–100; BMI 20.3
[2023-08-07] MEDS: PROCHLORPERAZINE 10 MG/2 ML VIAL IV (20:01)
[2023-08-07] MEDS: SODIUM CHLORIDE 0.9% 1,000 ML 1000 ML IV (20:01)
[2023-08-07] MEDS: diphenhydrAMINE 50 MG/ML VIAL 25 MG IV (20:03)
[2023-08-07] MEDS: DEXAMETHASONE 10 MG/ML VIAL IV (20:05)
--- NOTE | 2023-08-07 20:51 | ED.HA ---
HPI - Headache General Chief Complaint: Headache Stated Complaint: migraines Time Seen by Provider: 08/07/23 18:33 Mode of arrival: Ambulatory History of Present Illness HPI Narrative: 58-year-old gentleman with a history of significant coronary artery disease and peripheral vascular disease, chronic pain, chronic migraines presents complaining that he has had migraine for approximately 48 hours. He states that they had been getting significantly better and he notes that he actually has only had 1 other migraine in the last 2 years. He is taken Tylenol and it has not been effective. He notes that this is similar to prior migraines with waxing and waning episodes of severe lancinating pain varying from temples to the top of his head. He has not have chest pain or any acute neurologic symptoms. Denies significant viral infections recently. He brings in a handwritten note that is says that has from a provider at [facility] indicating that he should have indomethacin and it looks like melatonin however the writing is not actually reasonable. He has not having any fevers, cough, chills, nausea, vomiting or diarrhea. Related Data Home Medications Medication Instructions Recorded Confirmed atorvastatin 80 mg tablet 80 mg PO DAILY 01/13/19 01/13/19 carvedilol 3.125 mg tablet 3.125 mg PO BID 01/13/19 01/13/19 clopidogrel 75 mg tablet 75 mg PO DAILY 01/13/19 01/13/19 lisinopril 5 mg tablet 5 mg PO DAILY 01/13/19 01/13/19 Previous Rx's Medication Instructions Recorded albuterol sulfate 90 mcg/actuation 2 puff INH Q4HP PRN #1 ea 08/06/16 aerosol inhaler (Ventolin HFA) cholecalciferol (vitamin D3) 50 2,000 unit PO DAILY #90 caps 12/02/18 mcg (2,000 unit) capsule lorazepam 0.5 mg tablet 0.5 mg PO TID PRN anxiety #20 tabs 01/13/19 carbamazepine 200 mg See Rx Instructions PO SEE 04/12/19 capsule,extended release INSTRUCTIONS #900 caps [id number] (Carbatrol) alendronate 70 mg tablet 70 mg PO QWEEK #12 tabs 12/28/19 hydrocodone 5 mg-acetaminophen 325 1 tab PO Q6H PRN pain #14 tabs 08/05/ mg tablet ondansetron 4 mg disintegrating 4 mg PO Q6H PRN nausea and 08/05/20 tablet vomiting #20 tabs oxycodone-acetaminophen 5 mg-325 1 - 2 tab PO Q6H PRN pain #10 tabs 06/07/21 mg tablet Allergies Allergy/AdvReac Type Severity Reaction Status Date / Time acetaminophen AdvReac Mild PELVIC PAIN Verified 06/07/21 12:55 codeine AdvReac Mild PELVIC PAIN Verified 06/07/21 12:55 Review of Systems Review of Systems Narrative: Pertinent positive and negative findings as per HPI Patient History Medical History (Updated 08/07/23 @ 21:03 by Conchita Rojo MD) PAD (peripheral artery disease) History of PTCA 2 Coronary artery disease Seizure (~1987) Migraines (~2009) Depression Hx of joint injury (03/2012) DJD (degenerative joint disease), lumbar Acne (~03/2015) Pneumonia Asthma Seizure disorder Anxiety Chronic low back pain COPD (chronic obstructive pulmonary disease) (~2014) Surgical History History of back surgery S/P lumbar laminectomy Family History Father No problems noted. Mother No problems noted. Social History Smoking Status: Current every day smoker Smoking Status: Current every day smoker tobacco type: cigarettes alcohol intake frequency: holidays/special occasions only Substance Use Type: marijuana Exam Initial Vital Signs Initial Vital Signs: Vital Signs Temperature 98.7 F 08/07/23 18:04 Pulse Rate 64 08/07/23 18:04 Respiratory Rate 18 08/07/23 18:04 Blood Pressure 154/84 H 08/07/23 18:04 Pulse Oximetry 99 08/07/23 18:04 Oxygen Delivery Method Room Air 08/07/23 18:04 General: Chronically ill-appearing, in no acute distress. Able to give a complete and coherent history. Voice is hoarse consistent with chronic smoking. HEENT: Moist mucous membranes, normal sclera with reactive pupils, Respiratory: Full and symmetrical air movement Skin: Warm and dry, no rashes Neurologic: Grossly neurologically intact with no obvious asymmetries or abnormalities Extremities: No trauma, no lower extremity edema Psych: Frustrated, confrontational but speaking in full sentences with appropriate thought content Course Orders Ordered: Sodium Chloride (Normal Saline 0.9%) 1,000 mls @ 1,000 mls/hr IV BOLUS ONE Stop: 08/07/23 20:52 Last Infusion: 08/07/23 20:38 Dose: Infused Documented By: Admin: 08/07/23 20:01 Dose: 1,000 mls/hr Documented By: Discontinued Medications Dexamethasone (Dexamethasone 10 Mg/Ml Vial) 10 mg IV NOW ONE Stop: 08/07/23 19:54 Last Admin: 08/07/23 20:05 Dose: 10 mg Documented By: Diphenhydramine HCl (Diphenhydramine 50 Mg/Ml Vial) 25 mg IV NOW ONE Stop: 08/07/23 19:54 Last Admin: 08/07/23 20:03 Dose: 25 mg Documented By: Prochlorperazine (Prochlorperazine 10 Mg/2 Ml Vial) 10 mg IV NOW ONE Stop: 08/07/23 19:54 Last Admin: 08/07/23 20:01 Dose: 10 mg Documented By: Vital Signs Vital signs: Vital Signs - 8 hr 08/07/23 18:04 08/07/23 20:01 Temperature 98.7 F Pulse Rate 64 56 L Respiratory Rate 18 Blood Pressure 154/84 H 130/84 Pulse Oximetry 99 Oxygen Delivery Method Room Air MDM - Headache MDM Narrative Medical decision making narrative: CC: Migraine headache times 48 hours Complicating co-morbidities: Significant coronary artery disease, COPD, chronic migraine Data collected from: patient Medical records reviewed: Patient states that he was seen by the pain clinic however that must have been before we went to current computer system I see no records regarding that. ER visits reviewed primary care notes are not available. Differential considered: Migraine, tension headache, cluster headache Exam documented above, pertinent findings include: Patient is currently not having any acute pain, no acute neurologic findings. Treatments: Fluids, , dexamethasone, Compazine, Benadryl, Re-evaluations: Patient is feeling significantly improved Discussion: 58-year-old gentleman with chronic migraines currently on atenolol and carbamazepine for other reasons went likely helping with migraine suppression as he has only had this 2nd migraine in the last 2 years. Responded nicely to treatments above. Reviewed findings, reasons for medications and patient is safe for discharge home Discharge Plan Departure Patient Disposition: Home Clinical Impression: Migraine headache Instructions: DI for Migraine Activity Restrictions/Additional Instructions: I am sorry that you are suffering with this migraine In the emergency department you are given fluid, dexamethasone which is a steroid, an anti nausea medicine called Compazine which helps prevent headaches and also treats nausea, Benadryl which makes all of these medications more effective. This combination seemed to be effective for you. I hope you are able to get a good night of sleep tonight and wake up pain-free in the morning. Please follow up with your primary care physician as needed Prescriptions: No Action atorvastatin 80 mg tablet 80 mg PO DAILY lisinopril 5 mg tablet 5 mg PO DAILY carvedilol 3.125 mg tablet 3.125 mg PO BID clopidogrel 75 mg tablet 75 mg PO DAILY lorazepam 0.5 mg tablet 0.5 mg PO TID PRN (Reason: anxiety) Qty: 20 0RF albuterol sulfate [Ventolin HFA] 90 MCG/PUFF HFA aerosol inhaler 2 puff INH Q4HP PRNQty: 1 11RF cholecalciferol (vitamin D3) 2,000 unit capsule 2,000 unit PO DAILY Qty: 90 3RF carbamazepine [Carbatrol] 200 mg capsule, ER multiphase 12 hr See Rx Instructions PO SEE INSTRUCTIONS Qty: 900 3RF Dose Instruction: PO SEE INSTRUCTIONS; Rx Instructions: Take 4 tablets in the morning, 6 tablets in the evening. alendronate 70 mg tablet 70 mg PO QWEEK Qty: 12 0RF Rx Instructions: 12/20/19. S/W Jeff. Advised appt before the end of this prescription. No additional refills until seen. ondansetron 4 mg tablet,disintegrating 4 mg PO Q6H PRN (Reason: nausea and vomiting) Qty: 20 0RF hydrocodone-acetaminophen 5-325 mg tablet 1 tab PO Q6H PRN (Reason: pain) Qty: 14 0RF oxycodone-acetaminophen 5-325 mg tablet 1 - 2 tab PO Q6H PRN (Reason: pain) Qty: 10 0RF Referrals: John Parsons MD [Primary Care Provider] - Stand Alone Forms: Patient Portal/API
== END 2023-08-07 21:14 | disposition home or self-care (01) ==
PROVIDERS: Emergency Provider Emergency Medicine; PCP Surgery Surgical Oncology
DX: G43.909 Migraine, unspecified, not intractable, without status migrainosus (principal)
CPT/HCPCS: 36415; 96374; 96375; 99284; J0780; J1100; J1200